=== PATIENT | male | born 1980 | race Two or more races ===

== ENCOUNTER 2023-11-28 23:43 | Inpatient (IN) | payer MEDICAID, OTHER ==
[~2023-11-28] VITALS: Ht 182.9 cm; Wt 156.9 kg
[2023-11-28 23:43] VITALS: PULSE 95; RESP 31; O2SAT 90
[2023-11-28] MEDS ORDERED: DEXTROSE 50% WATER 50ML SYRINGE IV ONE (23:56)
[2023-11-29] VITALS (66 sets, daily range): BP systolic 95–162; BP diastolic 60–111; PULSE 90–107; RESP 20–38; TEMP 37.33632–38.28084; O2SAT 90–100
[2023-11-29] MEDS: MAGNESIUM 2 G PREMIX 50 ML IV ONE
[2023-11-29] MEDS: DEXTROSE 50% WATER 50ML SYRINGE IV ONE
[2023-11-29] MEDS ORDERED: MIDAZOLAM 100MG/100ML PMX 100 ML IV PRN
[2023-11-29] MEDS ORDERED: FENTANYL 2500MCG/250ML PMX 250 ML IV PRN
[2023-11-29] MEDS ORDERED: ACETAMINOPHEN 650MG SUPP PR PRN
[2023-11-29] MEDS: SODIUM CHLORIDE 0.9% 1,000 ML IV ONE ×2 (00:07→01:15)
[2023-11-29 00:16] LABS: HEMATOCRIT. 38.6 % (42.0-52.0); MEAN CORPUSCULAR HEMOGLOBIN 19.4 pg (28.0-32.0); MEAN CORPUSCULAR HGB CONC 25.8 g/dL (31.0-37.0); MEAN CORPUSCULAR VOLUME 74.9 fL (80.0-94.0); MEAN PLATELET VOLUME 8.6 fl (7.4-10.4); PLATELET 303 x1000/uL (130-400); RED BLOOD CELL COUNT 5.15 mill/uL (4.7-6.1); RED CELL DISTRIBUTION WIDTH 23.1 % (11.6-14.6); WHITE BLOOD COUNT 9.9 x1000/uL (4.5-11.0)
[2023-11-29 00:20] LABS: CHLORIDE 97 mEq/L (98-107); POTASSIUM 3.8 mEq/L (3.5-5.1); SODIUM 145 mEq/L (136-145)
[2023-11-29 00:21] LABS: CALCIUM 8.3 mg/dL (8.7-10.4); CARBON DIOXIDE 32 mEq/L (21-32)
[2023-11-29 00:22] LABS: DIFFERENTIAL COMMENT 1
[2023-11-29 00:25] LABS: CREATININE 2.9 mg/dL (0.6-1.3)
[2023-11-29 00:26] LABS: UREA NITROGEN BLOOD 20 mg/dL (9-23)
[2023-11-29 00:28] LABS: D-DIMER 1.82 mg/L FEU (<0.50); INR 1.2; PROTHROMBIN TIME 13.4 sec (9.6-11.0)
[2023-11-29 00:34] LABS: GLUCOSE 38 mg/dL (70-105); LACTIC ACID 11.5 mmol/L (0.4-2.0); TROPONIN I HIGH SENSITIVITY 477 ng/L (3.0-53)
[2023-11-29 00:35] LABS: ETHANOL BLOOD < 10 mg/dL (<10)
[2023-11-29 00:49] LABS: PLATELET ESTIMATE NORMAL
[2023-11-29 00:51] LABS: HYPOCHROMASIA 1+; MICROCYTOSIS 1+
[2023-11-29] MEDS: FENTANYL 2500MCG/250ML PMX 250 ML IV PRN (01:13)
[2023-11-29 01:59] LABS: BG BASE EXCESS -1.3 mmol/L (-2.0-2.0); BG CARBOXYHEMOGLOBIN 1.2 % (0.5-1.5); BG DEOXYHEMOGLOBIN 13.1 % (0.0-5.0); BG FRACTION INSPIRED OXYGEN 100; BG HCO3 ACT 26.6 mmol/L (22.0-26.0); BG METHEMOGLOBIN 0.3 % (0.0-1.5); BG OXYGEN SATURATION 86.7 % (92.0-98.5); BG OXYHEMOGLOBIN 85.4 % (94.0-97.0); BG PCO2 61.1 mmHg (35.0-45.0); BG PH 7.256 (7.350-7.450); BG PO2 60.6 mmHg (75.0-100.0); BG SAMPLE SITE RIGHT RADIAL; BG TOTAL HEMOGLOBIN 10.3 g/dL (12.0-18.0); BG VENT MODE VENT - AC
[2023-11-29] MEDS: DEXTROSE 5% WATER 1,000 ML IV ONE (02:03)
[2023-11-29] MEDS: MIDAZOLAM 100MG/100ML PMX 100 ML IV PRN (02:31)
[2023-11-29] MEDS: METHYLPREDNISOLONE SOD SUCC 125MG/2ML (ACT-O-VIAL) IV STA (02:36)
[2023-11-29] MEDS: ALBUTEROL (0.083%) 2.5MG/3ML NEB ONE (04:43)
[2023-11-29] MEDS: IPRATROPIUM BROMIDE (0.02%) 0.5MG/2.5ML NEB ONE (04:43)
[2023-11-29] MEDS: IPRATROPIUM BROMIDE (0.02%) 0.5MG/2.5ML NEB HHN STA (04:45)
[2023-11-29 04:46] LABS: TROPONIN I HIGH SENSITIVITY 1343 ng/L (3.0-53)
[2023-11-29] MEDS: ALBUTEROL (0.083%) 2.5MG/3ML NEB HHN SCH (04:46)
[2023-11-29 05:20] LABS: TROPONIN I HIGH SENSITIVITY 1906 ng/L (3.0-53)
[2023-11-29] MEDS: METHYLPREDNISOLONE SOD SUCC 125MG/2ML (ACT-O-VIAL) IV NR (09:15)
[2023-11-29] MEDS ORDERED: PANTOPRAZOLE 80 MG in SODIUM CHLORIDE 0.9% 100 ML IV ONE (10:00)
[2023-11-29] MEDS ORDERED: AZITHROMYCIN 500MG/250ML 250 ML IV SCH (10:00)
[2023-11-29] MEDS ORDERED: CEFTRIAXONE 1GM/50ML 50 ML IV SCH (10:00)
[2023-11-29] MEDS: ACETAMINOPHEN 650MG/20.3ML UDC NG PRN (11:55)
[2023-11-29] MEDS: FUROSEMIDE 40MG/4ML VIAL IVP NR (11:56)
[2023-11-29] MEDS: METHYLPREDNISOLONE SOD SUCC 125MG/2ML (ACT-O-VIAL) IV SCH (11:56)
[2023-11-29] MEDS: BUDESONIDE 0.5MG/2ML NEB HHN SCH (12:21)
[2023-11-29] MEDS: IPRATROPIUM/ALBUTEROL 0.5-3(2.5)MG/3ML NEB HHN SCH (12:21)
[2023-11-29] MEDS ORDERED: DEXTROSE 50% WATER 50ML SYRINGE IV PRN (12:45)
[2023-11-29 13:12] LABS: CLARITY URINE TURBID (CLEAR); COLOR URINE DARK YELLOW (YELLOW); GLUCOSE URINE NEGATIVE (NEGATIVE); KETONES URINE TRACE (NEGATIVE); LEUKOCYTE ESTERASE URINE 1+ (NEGATIVE); NITRITE URINE NEGATIVE (NEGATIVE); OCCULT BLOOD URINE 3+ (NEGATIVE); PROTEIN URINE 3+ (NEGATIVE); SPECIFIC GRAVITY URINE 1.026 (1.005-1.030)
[2023-11-29 13:21] LABS: *AMPHETAMINES SCREEN URINE PRESUMPTIVE POSITIVE (NEGATIVE)
[2023-11-29 13:23] LABS: *BARBITURATES SCREEN URINE NEGATIVE (NEGATIVE); *BENZODIAZEPINES SCREEN URINE PRESUMPTIVE POSITIVE (NEGATIVE); *COCAINE SCREEN URINE NEGATIVE (NEGATIVE); CANNABINOID URINE SCREEN NEGATIVE (NEGATIVE); ECSTASY MDMA SCREEN URINE NEGATIVE (NEGATIVE); METHADONE URINE SCREEN NEGATIVE (NEGATIVE); OPIATES URINE SCREEN NEGATIVE (NEGATIVE); PHENCYCLIDINE URINE SCREEN PRESUMTIVE POSITIVE (NEGATIVE)
[2023-11-29] MEDS ORDERED: FENTANYL CITRATE/PF 2,500 MCG in SODIUM CHLORIDE 0.9% 200 ML IV PRN (14:00)
[2023-11-29] MEDS ORDERED: PROPOFOL 10MG/ML 100ML 100 ML IV PRN (14:00)
[2023-11-29] MEDS: PANTOPRAZOLE 80 MG in SODIUM CHLORIDE 0.9% 100 ML IV ONE (14:02)
[2023-11-29] MEDS: CEFTRIAXONE 1GM/50ML 50 ML IV SCH (14:05)
[2023-11-29] MEDS: ENOXAPARIN 150MG/ML SYR SUBCUT NR (14:05)
[2023-11-29] MEDS: AZITHROMYCIN 500MG/250ML 250 ML IV SCH (14:11)
[2023-11-29] MEDS ORDERED: FENTANYL CITRATE 2,500 MCG in SODIUM CHLORIDE 0.9% 200 ML IV PRN (14:15)
[2023-11-29 14:41] LABS: BACTERIA URINE 4+
[2023-11-29 14:43] LABS: TRICHOMONAS URINE 1+
[2023-11-29 15:48] LABS: BG BASE EXCESS 7.3 mmol/L (-2.0-2.0); BG CARBOXYHEMOGLOBIN 1.1 % (0.5-1.5); BG DEOXYHEMOGLOBIN 23.3 % (0.0-5.0); BG FRACTION INSPIRED OXYGEN 100; BG HCO3 ACT 33.2 mmol/L (22.0-26.0); BG METHEMOGLOBIN 0.3 % (0.0-1.5); BG OXYGEN SATURATION 76.4 % (92.0-98.5); BG OXYHEMOGLOBIN 75.3 % (94.0-97.0); BG PCO2 53.3 mmHg (35.0-45.0); BG PH 7.412 (7.350-7.450); BG PO2 48.2 mmHg (75.0-100.0); BG SAMPLE SITE RIGHT RADIAL; BG TOTAL HEMOGLOBIN 11.4 g/dL (12.0-18.0); BG VENT MODE VENT - AC
[2023-11-29 15:51] LABS: CHLORIDE 100 mEq/L (98-107); SODIUM 141 mEq/L (136-145)
[2023-11-29 15:52] LABS: CARBON DIOXIDE 34 mEq/L (21-32)
[2023-11-29 15:57] LABS: CREATININE 2.7 mg/dL (0.6-1.3); GLUCOSE 153 mg/dL (70-105); UREA NITROGEN BLOOD 33 mg/dL (9-23)
[2023-11-29 16:00] LABS: PHOSPHORUS 4.4 mg/dL (2.5-4.9)
[2023-11-29 16:16] LABS: TROPONIN I HIGH SENSITIVITY 5161 ng/L (3.0-53)
[2023-11-29] MEDS: BLOOD SUGAR DIAGNOSTIC STRIP TEST SCH (16:30)
[2023-11-29] MEDS: INSULIN LISPRO 100 UNITS/ML SUBCUT SCH (17:00)
[2023-11-29 18:13] LABS: HEMATOCRIT. 34.8 % (42.0-52.0); HEMOGLOBIN. 9.7 g/dL (14.0-18.0); MEAN CORPUSCULAR HEMOGLOBIN 19.1 pg (28.0-32.0); MEAN CORPUSCULAR HGB CONC 27.9 g/dL (31.0-37.0); MEAN CORPUSCULAR VOLUME 68.2 fL (80.0-94.0); MEAN PLATELET VOLUME 9.1 fl (7.4-10.4); PLATELET 236 x1000/uL (130-400); RED CELL DISTRIBUTION WIDTH 22.7 % (11.6-14.6); WHITE BLOOD COUNT 13.5 x1000/uL (4.5-11.0)
[2023-11-29 18:18] LABS: DIFFERENTIAL COMMENT 1
[2023-11-29 18:21] LABS: ALBUMIN 3.5 g/dL (3.2-4.8); BILIRUBIN DIRECT 0.4 mg/dL (<=3.0); BILIRUBIN TOTAL 0.9 mg/dL (0.1-1.0); PROTEIN TOTAL 6.5 g/dL (6.0-8.3)
[2023-11-29 18:27] LABS: AMMONIA < 17 uMol/L (<32)
[2023-11-29 18:31] LABS: ALANINE AMINOTRANSFERASE 2058 IU/L (10-49)
[2023-11-29 18:35] LABS: ASPARTATE AMINOTRANSFERASE 2763 IU/L (<34)
[2023-11-29 19:39] LABS: HYPOCHROMASIA 2+; MICROCYTOSIS 3+; NUCLEATED RED BLOOD CELLS 2 /100 WBC; PLATELET ESTIMATE NORMAL
[2023-11-29] MEDS: DEXAMETHASONE 4MG/ML 1ML VIAL IV SCH (19:52)
[2023-11-29] MEDS: PANTOPRAZOLE SODIUM 40 MG/VIAL IV SCH (21:18)
[2023-11-29] MEDS: ENOXAPARIN 150MG/ML SYR SUBCUT SCH (21:19)
[2023-11-29] MEDS: METOPROLOL TARTRATE 25MG TABLET PO SCH (21:20)
[2023-11-29] MEDS: PIPERACILLIN/TAZO 3.375G/50ML 50 ML IV SCH (21:39)
[2023-11-30] VITALS (102 sets, daily range): BP systolic 89–144; BP diastolic 56–107; PULSE 82–97; RESP 19–36; TEMP 37.16964–38.0586; O2SAT 88–100
[2023-11-30] MEDS: ACETAMINOPHEN 650MG SUPP PR PRN (00:38)
[2023-11-30] MEDS: ACETAMINOPHEN 650MG/20.3ML UDC NG PRN (00:46)
[2023-11-30 06:12] LABS: TROPONIN I HIGH SENSITIVITY 2420 ng/L (3.0-53)
[2023-11-30] MEDS: FUROSEMIDE 40MG/4ML VIAL IV SCH (06:51)
[2023-11-30 08:53] LABS: CREATINE KINASE 395 IU/L (46-171)
[2023-11-30] MEDS ORDERED: ENOXAPARIN 150MG/ML SYR SUBCUT SCH (09:00)
[2023-11-30 09:14] LABS: HEPATITIS B SURFACE ANTIGEN NEGATIVE (Negative)
[2023-11-30 09:35] LABS: HEPATITIS A AB IGM NEGATIVE (Negative)
[2023-11-30 09:37] LABS: HEPATITIS B CORE AB IGM NEGATIVE (Negative); HEPATITIS C AB NON REACTIVE (Neg) (Negative)
[2023-11-30 09:54] LABS: HEMATOCRIT 32.9 % (42.0-52.0); HEMOGLOBIN 9.4 g/dL (14.0-18.0); MEAN CORPUSCULAR HEMOGLOBIN 19.3 pg (28.0-32.0); MEAN CORPUSCULAR HGB CONC 28.6 g/dL (31.0-37.0); MEAN CORPUSCULAR VOLUME 67.5 fL (80.0-94.0); PLATELET 232 x1000/uL (130-400); RED BLOOD CELL COUNT 4.87 mill/uL (4.7-6.1); RED CELL DISTRIBUTION WIDTH 22.9 % (11.6-14.6); WHITE BLOOD COUNT 14.1 x1000/uL (4.5-11.0)
[2023-11-30 10:03] LABS: CHLORIDE 99 mEq/L (98-107); POTASSIUM 3.7 mEq/L (3.5-5.1); SODIUM 140 mEq/L (136-145)
[2023-11-30 10:04] LABS: CALCIUM 7.7 mg/dL (8.7-10.4); CARBON DIOXIDE 36 mEq/L (21-32)
[2023-11-30] MEDS: ASPIRIN 81MG TABLET PO SCH (10:07)
[2023-11-30 10:09] LABS: CREATININE 2.6 mg/dL (0.6-1.3); GLUCOSE 148 mg/dL (70-105); UREA NITROGEN BLOOD 42 mg/dL (9-23)
[2023-11-30] MEDS: PANTOPRAZOLE SODIUM 40 MG/VIAL IV SCH (10:09)
[2023-11-30] MEDS: ENOXAPARIN 80MG/0.8ML SYR SUBCUT SCH (10:27)
[2023-11-30] MEDS: METRONIDAZOLE 500MG TABLET PO SCH (12:07)
[2023-11-30] MEDS: DOXYCYCLINE 100MG/100ML 100 ML IV SCH (12:08)
[2023-11-30 19:23] LABS: CREATININE URINE RANDOM 191.3 mg/dL
[2023-11-30] MEDS: MIDAZOLAM 100MG/100ML PMX 100 ML IV PRN (22:40)
[2023-12-01] VITALS (108 sets, daily range): BP systolic 76–121; BP diastolic 36–97; PULSE 84–95; RESP 15–44; TEMP 37.72524–38.6142; O2SAT 87–100
[2023-12-01 05:50] LABS: HEMATOCRIT. 36.6 % (42.0-52.0); MEAN CORPUSCULAR HEMOGLOBIN 19.1 pg (28.0-32.0); MEAN CORPUSCULAR HGB CONC 27.3 g/dL (31.0-37.0); MEAN CORPUSCULAR VOLUME 69.9 fL (80.0-94.0); MEAN PLATELET VOLUME 9.5 fl (7.4-10.4); PLATELET 293 x1000/uL (130-400); RED BLOOD CELL COUNT 5.24 mill/uL (4.7-6.1); WHITE BLOOD COUNT 15.2 x1000/uL (4.5-11.0)
[2023-12-01 05:56] LABS: CALCIUM 8.6 mg/dL (8.7-10.4); CHLORIDE 97 mEq/L (98-107); POTASSIUM 4.4 mEq/L (3.5-5.1); SODIUM 142 mEq/L (136-145)
[2023-12-01 05:57] LABS: CARBON DIOXIDE 32 mEq/L (21-32)
[2023-12-01 06:02] LABS: CREATININE 3.1 mg/dL (0.6-1.3); GLUCOSE 121 mg/dL (70-105); UREA NITROGEN BLOOD 53 mg/dL (9-23)
[2023-12-01 06:04] LABS: PHOSPHORUS 6.8 mg/dL (2.5-4.9)
[2023-12-01 06:37] LABS: DIFFERENTIAL COMMENT 1
[2023-12-01] MEDS: SODIUM CHLORIDE 0.9% 500 ML IV ONE (10:02)
[2023-12-01 11:19] LABS: CHLORIDE 98 mEq/L (98-107); POTASSIUM 4.4 mEq/L (3.5-5.1); SODIUM 141 mEq/L (136-145)
[2023-12-01 11:20] LABS: CALCIUM 8.1 mg/dL (8.7-10.4); CARBON DIOXIDE 32 mEq/L (21-32)
[2023-12-01 11:25] LABS: CREATININE 3.7 mg/dL (0.6-1.3); GLUCOSE 104 mg/dL (70-105); UREA NITROGEN BLOOD 59 mg/dL (9-23)
[2023-12-01 11:27] LABS: PHOSPHORUS 6.9 mg/dL (2.5-4.9)
[2023-12-01] MEDS: LANTHANUM CARBONATE 500MG CHEW TABLET PO SCH (12:14)
[2023-12-01 13:28] LABS: NUCLEATED RED BLOOD CELLS 3 /100 WBC
[2023-12-01 13:29] LABS: ANISOCYTOSIS 3+; HYPOCHROMASIA 2+; MICROCYTOSIS 3+; PLATELET ESTIMATE NORMAL; TARGET CELLS 1+
[2023-12-01] MEDS: SODIUM CHLORIDE 0.9% 100 ML IV ONE (18:03)
[2023-12-02] VITALS (110 sets, daily range): BP systolic 63–135; BP diastolic 28–99; PULSE 85–96; RESP 13–24; TEMP 37.33632–39.05868; O2SAT 87–100
[2023-12-02] MEDS: PHENYLEPHRINE 100 MG in DEXT 5% WATER 240 ML IV PRN (03:27)
[2023-12-02 05:12] LABS: HEMATOCRIT. 34.5 % (42.0-52.0); HEMOGLOBIN. 9.7 g/dL (14.0-18.0); MEAN CORPUSCULAR HEMOGLOBIN 19.4 pg (28.0-32.0); MEAN CORPUSCULAR HGB CONC 28.1 g/dL (31.0-37.0); MEAN CORPUSCULAR VOLUME 69.1 fL (80.0-94.0); MEAN PLATELET VOLUME 9.4 fl (7.4-10.4); PLATELET 280 x1000/uL (130-400); RED BLOOD CELL COUNT 4.98 mill/uL (4.7-6.1)
[2023-12-02 05:21] LABS: CHLORIDE 98 mEq/L (98-107); POTASSIUM 4.4 mEq/L (3.5-5.1); SODIUM 139 mEq/L (136-145)
[2023-12-02 05:22] LABS: CARBON DIOXIDE 33 mEq/L (21-32)
[2023-12-02 05:27] LABS: CREATININE 4.6 mg/dL (0.6-1.3); GLUCOSE 129 mg/dL (70-105); UREA NITROGEN BLOOD 75 mg/dL (9-23)
[2023-12-02 05:29] LABS: PHOSPHORUS 7.5 mg/dL (2.5-4.9)
[2023-12-02 05:56] LABS: TROPONIN I HIGH SENSITIVITY 1147 ng/L (3.0-53)
[2023-12-02 06:30] LABS: DIFFERENTIAL COMMENT 1
[2023-12-02 09:07] LABS: COMPLEMENT C3 97 mg/dL (82-167); COMPLEMENT C4 25 mg/dL (12-38)
[2023-12-02 10:15] LABS: BG BASE EXCESS 5.5 mmol/L (-2.0-2.0); BG CARBOXYHEMOGLOBIN 0.7 % (0.5-1.5); BG DEOXYHEMOGLOBIN 4.1 % (0.0-5.0); BG FRACTION INSPIRED OXYGEN 80; BG HCO3 ACT 31.6 mmol/L (22.0-26.0); BG METHEMOGLOBIN 0.1 % (0.0-1.5); BG OXYGEN SATURATION 95.9 % (92.0-98.5); BG OXYHEMOGLOBIN 95.1 % (94.0-97.0); BG PCO2 53.6 mmHg (35.0-45.0); BG PH 7.388 (7.350-7.450); BG PO2 91.9 mmHg (75.0-100.0); BG SAMPLE SITE LEFT RADIAL; BG TOTAL HEMOGLOBIN 10.8 g/dL (12.0-18.0); BG VENT MODE VENT - P/C
[2023-12-02 13:07] LABS: ANTI-NUCLEAR ANTIBODIES DIRECT Negative (Negative)
[2023-12-02 15:33] LABS: ANISOCYTOSIS 3+; MICROCYTOSIS 3+; NUCLEATED RED BLOOD CELLS 7 /100 WBC; PLATELET ESTIMATE NORMAL
[2023-12-02 15:34] LABS: HYPOCHROMASIA 1+
[2023-12-02] MEDS: DEXMEDETOMIDINE 400 MCG/100 ML 100 ML IV PRN (19:35)
[2023-12-02] MEDS: PIPERACILLIN/TAZO 3.375G/50ML 50 ML IV SCH (20:47)
[2023-12-03] VITALS (118 sets, daily range): BP systolic 82–155; BP diastolic 56–132; PULSE 67–97; RESP 0–29; TEMP 36.61404–38.6142; O2SAT 93–100
[2023-12-03 10:10] LABS: HEMOGLOBIN 9.9 g/dL (14.0-18.0); MEAN CORPUSCULAR HEMOGLOBIN 19.1 pg (28.0-32.0); MEAN CORPUSCULAR HGB CONC 27.4 g/dL (31.0-37.0); MEAN CORPUSCULAR VOLUME 69.5 fL (80.0-94.0); PLATELET 251 x1000/uL (130-400); RED BLOOD CELL COUNT 5.17 mill/uL (4.7-6.1); RED CELL DISTRIBUTION WIDTH 23.5 % (11.6-14.6); WHITE BLOOD COUNT 12.5 x1000/uL (4.5-11.0)
[2023-12-03 10:22] LABS: CHLORIDE 105 mEq/L (98-107); POTASSIUM 3.6 mEq/L (3.5-5.1); SODIUM 142 mEq/L (136-145)
[2023-12-03 10:23] LABS: CALCIUM 8.5 mg/dL (8.7-10.4); CARBON DIOXIDE 30 mEq/L (21-32)
[2023-12-03 10:28] LABS: GLUCOSE 139 mg/dL (70-105); UREA NITROGEN BLOOD 59 mg/dL (9-23)
[2023-12-03 10:30] LABS: PHOSPHORUS 4.7 mg/dL (2.5-4.9)
[2023-12-03 10:56] LABS: CREATININE 2.9 mg/dL (0.6-1.3)
[2023-12-04] VITALS (82 sets, daily range): BP systolic 108–158; BP diastolic 60–100; PULSE 78–102; RESP 14–26; TEMP 37.16964–38.3364; O2SAT 90–100
[2023-12-04 10:41] LABS: BASOPHILS % 0.1 % (0.0-2.0); EOSINOPHILS % 1.2 % (0.0-5.0); HEMATOCRIT. 30.7 % (42.0-52.0); HEMOGLOBIN. 8.7 g/dL (14.0-18.0); LYMPHOCYTES % 10.5 % (20.0-50.0); MEAN CORPUSCULAR HEMOGLOBIN 19.3 pg (28.0-32.0); MEAN CORPUSCULAR HGB CONC 28.3 g/dL (31.0-37.0); MEAN CORPUSCULAR VOLUME 68.3 fL (80.0-94.0); MEAN PLATELET VOLUME 9.4 fl (7.4-10.4); MONOCYTES % 14.8 % (2.0-8.0); NEUTROPHILS % 73.4 % (40.0-76.0); PLATELET 195 x1000/uL (130-400); RED CELL DISTRIBUTION WIDTH 22.8 % (11.6-14.6); WHITE BLOOD COUNT 10.1 x1000/uL (4.5-11.0)
[2023-12-04 10:48] LABS: CARBON DIOXIDE 34 mEq/L (21-32); CHLORIDE 106 mEq/L (98-107); DIFFERENTIAL COMMENT 1; POTASSIUM 3.3 mEq/L (3.5-5.1); SODIUM 148 mEq/L (136-145)
[2023-12-04 10:49] LABS: CALCIUM 8.5 mg/dL (8.7-10.4)
[2023-12-04 10:54] LABS: CREATININE 2.2 mg/dL (0.6-1.3); GLUCOSE 109 mg/dL (70-105); UREA NITROGEN BLOOD 60 mg/dL (9-23)
[2023-12-04 10:56] LABS: PHOSPHORUS 2.2 mg/dL (2.5-4.9)
[2023-12-04] MEDS: KCL 20MEQ/100ML PREMIX 100 ML IV NR (11:05)
[2023-12-04] MEDS: FUROSEMIDE 100MG/10ML VIAL IVP SCH (14:19)
[2023-12-05] VITALS (78 sets, daily range): BP systolic 115–182; BP diastolic 67–102; PULSE 80–101; RESP 11–33; TEMP 36.9474–38.44752; O2SAT 82–100
[2023-12-05 04:45] LABS: HEMATOCRIT. 29.2 % (42.0-52.0); HEMOGLOBIN. 8.4 g/dL (14.0-18.0); MEAN CORPUSCULAR HEMOGLOBIN 19.6 pg (28.0-32.0); MEAN CORPUSCULAR HGB CONC 28.7 g/dL (31.0-37.0); MEAN CORPUSCULAR VOLUME 68.2 fL (80.0-94.0); MEAN PLATELET VOLUME 9.1 fl (7.4-10.4); PLATELET 223 x1000/uL (130-400); RED BLOOD CELL COUNT 4.28 mill/uL (4.7-6.1); RED CELL DISTRIBUTION WIDTH 23.3 % (11.6-14.6); WHITE BLOOD COUNT 10.1 x1000/uL (4.5-11.0)
[2023-12-05 05:00] LABS: IRON 25 ug/dL (65-175)
[2023-12-05 05:01] LABS: ALANINE AMINOTRANSFERASE 639 IU/L (10-49)
[2023-12-05 05:02] LABS: ALBUMIN 3.3 g/dL (3.2-4.8); ASPARTATE AMINOTRANSFERASE 186 IU/L (<34); BILIRUBIN DIRECT 0.7 mg/dL (<=3.0); BILIRUBIN TOTAL 1.4 mg/dL (0.1-1.0); PROTEIN TOTAL 6.3 g/dL (6.0-8.3); TOTAL IRON BINDING CAPACITY 425 ug/dl (250-425)
[2023-12-05 05:09] LABS: VITAMIN B12 SERUM 831 pg/mL (211-911)
[2023-12-05 05:10] LABS: FOLIC ACID (FOLATE) SERUM 5.74 ng/mL (>5.38)
[2023-12-05 05:11] LABS: FERRITIN 73 ng/mL (22-322)
[2023-12-05 05:14] LABS: DIFFERENTIAL COMMENT 1
[2023-12-05] MEDS ORDERED: LIDOCAINE HCL/EPINEPHRINE 1%-EPI 1:100,000 20 ML VIAL ONE (07:22)
[2023-12-05] MEDS ORDERED: ROCURONIUM BROMIDE 10MG/ML VIAL 5ML IV ONE ×2 (09:12→09:55)
[2023-12-05] MEDS ORDERED: PROPOFOL 200MG/20ML VIAL IV ONE (09:15)
[2023-12-05 09:22] LABS: CHLORIDE 108 mEq/L (98-107); SODIUM 149 mEq/L (136-145)
[2023-12-05 09:23] LABS: CALCIUM 8.9 mg/dL (8.7-10.4); CARBON DIOXIDE 34 mEq/L (21-32)
[2023-12-05 09:25] LABS: POTASSIUM 2.8 mEq/L (3.5-5.1)
[2023-12-05 09:28] LABS: CREATININE 1.7 mg/dL (0.6-1.3); GLUCOSE 111 mg/dL (70-105); UREA NITROGEN BLOOD 47 mg/dL (9-23)
[2023-12-05 09:30] LABS: PHOSPHORUS 1.5 mg/dL (2.5-4.9)
[2023-12-05] MEDS ORDERED: FENTANYL CITRATE/PF 50MCG/ML 2ML VIAL ONE (09:35)
[2023-12-05] MEDS ORDERED: EPHEDRINE SULFATE 50MG/ML VIAL ONE (09:55)
[2023-12-05] MEDS: KCL 20MEQ/100ML PREMIX 100 ML IV SCH (11:10)
[2023-12-05 11:17] LABS: NUCLEATED RED BLOOD CELLS 2 /100 WBC
[2023-12-05 11:20] LABS: ANISOCYTOSIS 3+; HYPOCHROMASIA 1+; MICROCYTOSIS 3+; PLATELET ESTIMATE NORMAL; TARGET CELLS 1+
[2023-12-05] MEDS: HYDRALAZINE 20MG/ML VIAL IV PRN (15:45)
[2023-12-05] MEDS: POTASSIUM PHOSPHATE 30 MMOL in SODIUM CHLORIDE 0.9% 490 ML IV ONE (15:45)
[2023-12-05] MEDS: IRON SUCROSE COMPLEX 100 MG/5 ML ML IV SCH (15:46)
[2023-12-05 17:19] LABS: POTASSIUM 3.1 mEq/L (3.5-5.1)
[2023-12-05] MEDS: POTASSIUM CHLORIDE 20MEQ/PACKET PO NR (20:07)
[2023-12-06] VITALS (62 sets, daily range): BP systolic 123–194; BP diastolic 45–120; PULSE 90–109; RESP 16–27; TEMP 37.2252–37.503; O2SAT 91–100
[2023-12-06] MEDS: LORAZEPAM 2MG/ML INJ IV PRN (01:33)
[2023-12-06 05:35] LABS: INR 1.2
[2023-12-06 05:40] LABS: BASOPHILS % 0.6 % (0.0-2.0); EOSINOPHILS % 0.9 % (0.0-5.0); HEMATOCRIT. 28.4 % (42.0-52.0); HEMOGLOBIN. 8.1 g/dL (14.0-18.0); LYMPHOCYTES % 14.8 % (20.0-50.0); MEAN CORPUSCULAR HEMOGLOBIN 19.6 pg (28.0-32.0); MEAN CORPUSCULAR HGB CONC 28.6 g/dL (31.0-37.0); MEAN CORPUSCULAR VOLUME 68.6 fL (80.0-94.0); MEAN PLATELET VOLUME 9.2 fl (7.4-10.4); MONOCYTES % 15.9 % (2.0-8.0); NEUTROPHILS % 67.8 % (40.0-76.0); PLATELET 251 x1000/uL (130-400); RED BLOOD CELL COUNT 4.14 mill/uL (4.7-6.1); RED CELL DISTRIBUTION WIDTH 23.8 % (11.6-14.6)
[2023-12-06 05:47] LABS: CHLORIDE 113 mEq/L (98-107); POTASSIUM 3.5 mEq/L (3.5-5.1); SODIUM 154 mEq/L (136-145)
[2023-12-06 05:48] LABS: CALCIUM 8.7 mg/dL (8.7-10.4); CARBON DIOXIDE 31 mEq/L (21-32)
[2023-12-06 05:53] LABS: CREATININE 1.6 mg/dL (0.6-1.3); GLUCOSE 97 mg/dL (70-105); UREA NITROGEN BLOOD 34 mg/dL (9-23)
[2023-12-06 05:55] LABS: PHOSPHORUS 3.6 mg/dL (2.5-4.9)
[2023-12-06 07:07] LABS: DIFFERENTIAL COMMENT 1
[2023-12-06] MEDS: KCL 20MEQ/100ML PREMIX 100 ML IV SCH (08:40)
[2023-12-06] MEDS: CEFTRIAXONE 1GM/50ML 50 ML IV NR (08:40)
[2023-12-06] MEDS: DEXTROSE 5% WATER 1,000 ML IV SCH (08:40)
[2023-12-06] MEDS ORDERED: CARVEDILOL 3.125 MG TABLET NG SCH (09:00)
[2023-12-06 09:52] LABS: CHLORIDE 112 mEq/L (98-107); POTASSIUM 3.1 mEq/L (3.5-5.1); SODIUM 152 mEq/L (136-145)
[2023-12-06 09:53] LABS: CALCIUM 8.7 mg/dL (8.7-10.4); CARBON DIOXIDE 32 mEq/L (21-32)
[2023-12-06 09:57] LABS: CREATININE 1.7 mg/dL (0.6-1.3); GLUCOSE 103 mg/dL (70-105)
[2023-12-06 09:58] LABS: UREA NITROGEN BLOOD 32 mg/dL (9-23)
[2023-12-06 10:00] LABS: PHOSPHORUS 3.4 mg/dL (2.5-4.9)
[2023-12-06] MEDS ORDERED: PROPOFOL 200MG/20ML VIAL IV ONE (11:25)
[2023-12-06] MEDS ORDERED: ROCURONIUM BROMIDE 10MG/ML VIAL 5ML IV ONE (11:25)
[2023-12-06] MEDS: CARVEDILOL 6.25 MG TABLET NG SCH (20:38)
[2023-12-06] MEDS: POTASSIUM-SODIUM PHOSPHATE POWDER PACKET PO SCH (20:38)
[2023-12-07] VITALS (25 sets, daily range): BP systolic 98–191; BP diastolic 69–168; PULSE 92–110; RESP 16–26; TEMP 36.50292–37.503; O2SAT 85–100
[2023-12-07 07:02] LABS: CARBON DIOXIDE 27 mEq/L (21-32); CHLORIDE 113 mEq/L (98-107); POTASSIUM 3.6 mEq/L (3.5-5.1); SODIUM 151 mEq/L (136-145)
[2023-12-07 07:04] LABS: CALCIUM 8.9 mg/dL (8.7-10.4)
[2023-12-07 07:08] LABS: CREATININE 1.5 mg/dL (0.6-1.3); GLUCOSE 99 mg/dL (70-105); UREA NITROGEN BLOOD 22 mg/dL (9-23)
[2023-12-07 07:11] LABS: PHOSPHORUS 4.4 mg/dL (2.5-4.9)
[2023-12-07 09:15] LABS: BASOPHILS % 0.4 % (0.0-2.0); EOSINOPHILS % 3.9 % (0.0-5.0); HEMATOCRIT. 30.7 % (42.0-52.0); HEMOGLOBIN. 8.6 g/dL (14.0-18.0); LYMPHOCYTES % 15.1 % (20.0-50.0); MEAN CORPUSCULAR HEMOGLOBIN 19.5 pg (28.0-32.0); MEAN CORPUSCULAR VOLUME 69.5 fL (80.0-94.0); MONOCYTES % 12.6 % (2.0-8.0); PLATELET 282 x1000/uL (130-400); RED BLOOD CELL COUNT 4.41 mill/uL (4.7-6.1); RED CELL DISTRIBUTION WIDTH 23.9 % (11.6-14.6)
[2023-12-07 09:22] LABS: DIFFERENTIAL COMMENT 1
[2023-12-07 09:23] LABS: WHITE BLOOD COUNT 10.2 x1000/uL (4.5-11.0)
[2023-12-07 09:24] LABS: ADD RBC MORPHOLOGY NO
[2023-12-07 09:54] LABS: CHLORIDE 113 mEq/L (98-107); SODIUM 150 mEq/L (136-145)
[2023-12-07 09:55] LABS: CARBON DIOXIDE 29 mEq/L (21-32)
[2023-12-07 09:56] LABS: CALCIUM 8.9 mg/dL (8.7-10.4)
[2023-12-07 10:00] LABS: CREATININE 1.6 mg/dL (0.6-1.3); GLUCOSE 116 mg/dL (70-105)
[2023-12-07 10:01] LABS: UREA NITROGEN BLOOD 24 mg/dL (9-23)
[2023-12-07 10:03] LABS: PHOSPHORUS 4.5 mg/dL (2.5-4.9)
[2023-12-07] MEDS ORDERED: SODIUM CHLORIDE 3% FOR INH 4ML NEB INH PRN (14:15)
[2023-12-07] MEDS: ACETYLCYSTEINE 200MG/ML 20% VIAL 4ML INH SCH (17:21)
[2023-12-07] MEDS: CARVEDILOL 12.5MG TABLET GT SCH (20:24)
[2023-12-08] VITALS (20 sets, daily range): BP systolic 118–141; BP diastolic 80–109; PULSE 82–99; RESP 17–23; TEMP 36.16956–37.503; O2SAT 96–100
[2023-12-08 05:03] LABS: BASOPHILS % 0.4 % (0.0-2.0); EOSINOPHILS % 5.1 % (0.0-5.0); HEMATOCRIT. 29.8 % (42.0-52.0); HEMOGLOBIN. 8.1 g/dL (14.0-18.0); LYMPHOCYTES % 13.2 % (20.0-50.0); MEAN CORPUSCULAR HEMOGLOBIN 19.2 pg (28.0-32.0); MEAN CORPUSCULAR HGB CONC 27.1 g/dL (31.0-37.0); MEAN CORPUSCULAR VOLUME 70.7 fL (80.0-94.0); MEAN PLATELET VOLUME 9.3 fl (7.4-10.4); MONOCYTES % 9.8 % (2.0-8.0); NEUTROPHILS % 71.5 % (40.0-76.0); PLATELET 288 x1000/uL (130-400); RED BLOOD CELL COUNT 4.22 mill/uL (4.7-6.1); RED CELL DISTRIBUTION WIDTH 24.3 % (11.6-14.6); WHITE BLOOD COUNT 11.1 x1000/uL (4.5-11.0)
[2023-12-08 05:29] LABS: CALCIUM 8.3 mg/dL (8.7-10.4)
[2023-12-08 05:34] LABS: CREATININE 1.5 mg/dL (0.6-1.3)
[2023-12-08 08:02] LABS: DIFFERENTIAL COMMENT 1
[2023-12-08] MEDS: ENOXAPARIN 40MG/0.4ML SYR SUBCUT SCH (08:18)
[2023-12-08] MEDS: POTASSIUM CHLORIDE 20MEQ/PACKET PO SCH (11:22)
[2023-12-08] MEDS ORDERED: POTASSIUM CHLORIDE 20MEQ TABLET SR PO SCH ×2 (17:30→18:00)
[2023-12-08] MEDS: POTASSIUM CHLORIDE 20MEQ/PACKET GT SCH ×2 (17:50→18:00)
[2023-12-08] MEDS: FERROUS SULFATE 325MG TABLET PO SCH (17:50)
[2023-12-08] MEDS: QUETIAPINE FUMARATE 25MG TABLET PO SCH (21:17)
[2023-12-09] VITALS (21 sets, daily range): BP systolic 127–155; BP diastolic 78–113; PULSE 84–96; RESP 18–19; TEMP 36.22512–37.55856; O2SAT 10–100
[2023-12-09] MEDS ORDERED: FERROUS SULFATE 300MG/5ML UDC PO SCH (07:00)
[2023-12-09] MEDS: AMLODIPINE 5MG TABLET PO SCH (12:09)
[2023-12-09 17:42] LABS: BASOPHILS % 0.5 % (0.0-2.0); DIFFERENTIAL COMMENT 1; EOSINOPHILS % 3.1 % (0.0-5.0); HEMATOCRIT. 31.9 % (42.0-52.0); HEMOGLOBIN. 8.7 g/dL (14.0-18.0); LYMPHOCYTES % 12.1 % (20.0-50.0); MEAN CORPUSCULAR HEMOGLOBIN 19.7 pg (28.0-32.0); MEAN CORPUSCULAR HGB CONC 27.2 g/dL (31.0-37.0); MEAN CORPUSCULAR VOLUME 72.5 fL (80.0-94.0); MEAN PLATELET VOLUME 9.4 fl (7.4-10.4); MONOCYTES % 7.2 % (2.0-8.0); NEUTROPHILS % 77.1 % (40.0-76.0); PLATELET 269 x1000/uL (130-400); RED BLOOD CELL COUNT 4.41 mill/uL (4.7-6.1); RED CELL DISTRIBUTION WIDTH 25.1 % (11.6-14.6); WHITE BLOOD COUNT 12.3 x1000/uL (4.5-11.0)
[2023-12-09 17:51] LABS: CHLORIDE 113 mEq/L (98-107); POTASSIUM 3.7 mEq/L (3.5-5.1); SODIUM 145 mEq/L (136-145)
[2023-12-09 17:52] LABS: CARBON DIOXIDE 26 mEq/L (21-32)
[2023-12-09 17:53] LABS: CALCIUM 8.7 mg/dL (8.7-10.4)
[2023-12-09 17:57] LABS: CREATININE 1.2 mg/dL (0.6-1.3); GLUCOSE 124 mg/dL (70-105)
[2023-12-09 17:58] LABS: UREA NITROGEN BLOOD 16 mg/dL (9-23)
[2023-12-09 18:00] LABS: PHOSPHORUS 2.7 mg/dL (2.5-4.9)
[2023-12-09] MEDS: FERROUS SULFATE 300MG/5ML UDC GT SCH (19:05)
[2023-12-10] VITALS (28 sets, daily range): BP systolic 116–154; BP diastolic 60–115; PULSE 82–101; RESP 12–28; TEMP 36.44736–37.503; O2SAT 95–100
[2023-12-10 08:13] LABS: EOSINOPHILS % 3.7 % (0.0-5.0); HEMATOCRIT. 31.2 % (42.0-52.0); HEMOGLOBIN. 8.5 g/dL (14.0-18.0); LYMPHOCYTES % 13.7 % (20.0-50.0); MEAN CORPUSCULAR HGB CONC 27.4 g/dL (31.0-37.0); MEAN CORPUSCULAR VOLUME 73.2 fL (80.0-94.0); MEAN PLATELET VOLUME 9.4 fl (7.4-10.4); MONOCYTES % 6.3 % (2.0-8.0); NEUTROPHILS % 75.3 % (40.0-76.0); PLATELET 193 x1000/uL (130-400); RED BLOOD CELL COUNT 4.26 mill/uL (4.7-6.1); RED CELL DISTRIBUTION WIDTH 25.1 % (11.6-14.6)
[2023-12-10 08:17] LABS: DIFFERENTIAL COMMENT 1
[2023-12-10] MEDS: HALOPERIDOL 5MG TABLET PO PRN (08:17)
[2023-12-10 09:30] LABS: CHLORIDE 114 mEq/L (98-107); POTASSIUM 4.3 mEq/L (3.5-5.1); SODIUM 145 mEq/L (136-145)
[2023-12-10 09:31] LABS: CARBON DIOXIDE 24 mEq/L (21-32)
[2023-12-10 09:32] LABS: CALCIUM 8.1 mg/dL (8.7-10.4)
[2023-12-10 09:36] LABS: CREATININE 1.1 mg/dL (0.6-1.3); GLUCOSE 110 mg/dL (70-105); UREA NITROGEN BLOOD 15 mg/dL (9-23)
[2023-12-10] MEDS: QUETIAPINE FUMARATE 25MG TABLET PO SCH (14:16)
[2023-12-11] VITALS (25 sets, daily range): BP systolic 103–145; BP diastolic 65–93; PULSE 75–104; RESP 18–28; TEMP 36.72516–37.66968; O2SAT 96–100
[2023-12-11 07:19] LABS: CARBON DIOXIDE 25 mEq/L (21-32); CHLORIDE 111 mEq/L (98-107); POTASSIUM 3.6 mEq/L (3.5-5.1); SODIUM 144 mEq/L (136-145)
[2023-12-11 07:21] LABS: CALCIUM 8.6 mg/dL (8.7-10.4)
[2023-12-11 07:25] LABS: CREATININE 1.2 mg/dL (0.6-1.3); GLUCOSE 87 mg/dL (70-105)
[2023-12-11 07:26] LABS: BASOPHILS % 0.5 % (0.0-2.0); EOSINOPHILS % 3.5 % (0.0-5.0); HEMATOCRIT. 30.2 % (42.0-52.0); HEMOGLOBIN. 8.5 g/dL (14.0-18.0); LYMPHOCYTES % 13.7 % (20.0-50.0); MEAN CORPUSCULAR HEMOGLOBIN 20.1 pg (28.0-32.0); MEAN CORPUSCULAR HGB CONC 28.1 g/dL (31.0-37.0); MEAN CORPUSCULAR VOLUME 71.7 fL (80.0-94.0); MEAN PLATELET VOLUME 9.4 fl (7.4-10.4); MONOCYTES % 9.1 % (2.0-8.0); NEUTROPHILS % 73.2 % (40.0-76.0); PLATELET 266 x1000/uL (130-400); RED BLOOD CELL COUNT 4.21 mill/uL (4.7-6.1); RED CELL DISTRIBUTION WIDTH 24.9 % (11.6-14.6); UREA NITROGEN BLOOD 14 mg/dL (9-23)
[2023-12-11 07:33] LABS: DIFFERENTIAL COMMENT 1
[2023-12-11] MEDS: QUETIAPINE FUMARATE 25MG TABLET PO SCH (09:32)
[2023-12-11] MEDS: DIATR MEGLU/DIATRIZOATE SOLN 30ML ONE (21:04)
[2023-12-11] MEDS: LORAZEPAM 2MG/ML INJ IV PRN (22:23)
[2023-12-11] MEDS: INSULIN LISPRO 100 UNITS/ML SUBCUT SCH (23:23)
[2023-12-11] MEDS: BLOOD SUGAR DIAGNOSTIC STRIP TEST SCH (23:23)
[2023-12-12] VITALS (26 sets, daily range): BP systolic 134–152; BP diastolic 83–121; PULSE 72–102; RESP 16–26; TEMP 36.33624–37.503; O2SAT 96–100
[2023-12-12] MEDS: HALOPERIDOL LACTATE 5MG/ML VIAL IM NR (09:26)
[2023-12-12] MEDS: LIDOCAINE HCL 1% 10 MG/ML 10ML VIAL ONE ×2 (09:33)
[2023-12-12] MEDS: DIATR MEGLU/DIATRIZOATE SOLN 30ML ONE (17:24)
[2023-12-12] MEDS: HALOPERIDOL LACTATE 5MG/ML VIAL IM PRN (17:50)
[2023-12-12] MEDS: QUETIAPINE FUMARATE 25MG TABLET PO SCH (17:50)
[2023-12-13] VITALS (22 sets, daily range): BP systolic 132–176; BP diastolic 79–106; PULSE 67–91; RESP 8–23; TEMP 36.3918–37.28076; O2SAT 98–100
[2023-12-13 05:32] LABS: BASOPHILS % 0.7 % (0.0-2.0); EOSINOPHILS % 4.1 % (0.0-5.0); HEMATOCRIT. 27.6 % (42.0-52.0); HEMOGLOBIN. 7.9 g/dL (14.0-18.0); LYMPHOCYTES % 24.8 % (20.0-50.0); MEAN CORPUSCULAR HEMOGLOBIN 20.3 pg (28.0-32.0); MEAN CORPUSCULAR HGB CONC 28.5 g/dL (31.0-37.0); MEAN CORPUSCULAR VOLUME 71.3 fL (80.0-94.0); MONOCYTES % 9.8 % (2.0-8.0); NEUTROPHILS % 60.6 % (40.0-76.0); PLATELET 278 x1000/uL (130-400); RED BLOOD CELL COUNT 3.88 mill/uL (4.7-6.1); RED CELL DISTRIBUTION WIDTH 25.5 % (11.6-14.6); WHITE BLOOD COUNT 5.4 x1000/uL (4.5-11.0)
[2023-12-13 05:33] LABS: CALCIUM 8.9 mg/dL (8.7-10.4); CARBON DIOXIDE 22 mEq/L (21-32); CHLORIDE 110 mEq/L (98-107); SODIUM 141 mEq/L (136-145)
[2023-12-13 05:39] LABS: CREATININE 1.1 mg/dL (0.6-1.3); GLUCOSE 79 mg/dL (70-105); UREA NITROGEN BLOOD 9 mg/dL (9-23)
[2023-12-13 06:18] LABS: DIFFERENTIAL COMMENT 1
[2023-12-13] MEDS: BACITRACIN 14GM TUBE TOP SCH (20:43)
[2023-12-14] VITALS (24 sets, daily range): BP systolic 107–157; BP diastolic 79–117; PULSE 72–97; RESP 18–25; TEMP 36.33624–36.89184; O2SAT 97–100
[2023-12-14 06:02] LABS: BASOPHILS % 1.2 % (0.0-2.0); EOSINOPHILS % 3.4 % (0.0-5.0); HEMATOCRIT. 28.9 % (42.0-52.0); HEMOGLOBIN. 8.5 g/dL (14.0-18.0); LYMPHOCYTES % 28.3 % (20.0-50.0); MEAN CORPUSCULAR HEMOGLOBIN 20.7 pg (28.0-32.0); MEAN CORPUSCULAR HGB CONC 29.4 g/dL (31.0-37.0); MEAN CORPUSCULAR VOLUME 70.2 fL (80.0-94.0); MEAN PLATELET VOLUME 10.1 fl (7.4-10.4); MONOCYTES % 9.7 % (2.0-8.0); NEUTROPHILS % 57.4 % (40.0-76.0); PLATELET 285 x1000/uL (130-400); RED BLOOD CELL COUNT 4.12 mill/uL (4.7-6.1); RED CELL DISTRIBUTION WIDTH 25.8 % (11.6-14.6); WHITE BLOOD COUNT 5.3 x1000/uL (4.5-11.0)
[2023-12-14 06:13] LABS: CHLORIDE 109 mEq/L (98-107); POTASSIUM 3.5 mEq/L (3.5-5.1)
[2023-12-14 06:14] LABS: CALCIUM 8.9 mg/dL (8.7-10.4); CARBON DIOXIDE 20 mEq/L (21-32); SODIUM 140 mEq/L (136-145)
[2023-12-14 06:19] LABS: CREATININE 1.2 mg/dL (0.6-1.3); GLUCOSE 91 mg/dL (70-105)
[2023-12-14 06:20] LABS: UREA NITROGEN BLOOD 8 mg/dL (9-23)
[2023-12-14 06:22] LABS: DIFFERENTIAL COMMENT 1
[2023-12-14] MEDS: MENTHOL/LANOLIN/CALAMINE/ZN OX OINT 71GM TOP PRN (09:37)
[2023-12-14] MEDS: BUDESONIDE 0.5MG/2ML NEB HHN SCH (21:09)
[2023-12-14] MEDS: IPRATROPIUM/ALBUTEROL 0.5-3(2.5)MG/3ML NEB HHN SCH (21:09)
[2023-12-15] VITALS (23 sets, daily range): BP systolic 105–140; BP diastolic 69–89; PULSE 76–98; RESP 14–24; TEMP 36.3918–36.78072; O2SAT 92–100
[2023-12-15 07:42] LABS: BASOPHILS % 0.9 % (0.0-2.0); EOSINOPHILS % 4.2 % (0.0-5.0); HEMATOCRIT. 29.9 % (42.0-52.0); HEMOGLOBIN. 8.5 g/dL (14.0-18.0); LYMPHOCYTES % 25.2 % (20.0-50.0); MEAN CORPUSCULAR HEMOGLOBIN 19.9 pg (28.0-32.0); MEAN CORPUSCULAR HGB CONC 28.3 g/dL (31.0-37.0); MEAN CORPUSCULAR VOLUME 70.2 fL (80.0-94.0); MEAN PLATELET VOLUME 9.4 fl (7.4-10.4); MONOCYTES % 9.2 % (2.0-8.0); NEUTROPHILS % 60.5 % (40.0-76.0); PLATELET 255 x1000/uL (130-400); RED BLOOD CELL COUNT 4.25 mill/uL (4.7-6.1); RED CELL DISTRIBUTION WIDTH 25.5 % (11.6-14.6); WHITE BLOOD COUNT 4.6 x1000/uL (4.5-11.0)
[2023-12-15 07:48] LABS: CARBON DIOXIDE 22 mEq/L (21-32); CHLORIDE 109 mEq/L (98-107); POTASSIUM 3.7 mEq/L (3.5-5.1); SODIUM 140 mEq/L (136-145)
[2023-12-15 07:49] LABS: CALCIUM 9.1 mg/dL (8.7-10.4)
[2023-12-15 07:53] LABS: CREATININE 1.1 mg/dL (0.6-1.3)
[2023-12-15 07:54] LABS: GLUCOSE 98 mg/dL (70-105); UREA NITROGEN BLOOD 6 mg/dL (9-23)
[2023-12-15 08:03] LABS: DIFFERENTIAL COMMENT 1
[2023-12-15 08:04] LABS: ADD RBC MORPHOLOGY NO
[2023-12-15 09:23] LABS: BG BASE EXCESS -2.9 mmol/L (-2.0-2.0); BG CARBOXYHEMOGLOBIN 0.3 % (0.5-1.5); BG DEOXYHEMOGLOBIN 1.6 % (0.0-5.0); BG FRACTION INSPIRED OXYGEN 40; BG HCO3 ACT 20.8 mmol/L (22.0-26.0); BG METHEMOGLOBIN 0.3 % (0.0-1.5); BG OXYGEN SATURATION 98.4 % (92.0-98.5); BG OXYHEMOGLOBIN 97.8 % (94.0-97.0); BG PCO2 32.5 mmHg (35.0-45.0); BG PH 7.425 (7.350-7.450); BG SAMPLE SITE RIGHT RADIAL; BG TOTAL HEMOGLOBIN 9.9 g/dL (12.0-18.0); BG VENT MODE VENT - P/C
== END 2023-12-15 19:30 | DRG 5 ==
LOC: ER 23:43 → EDBD 11-29 01:16 → MICUNO 11-29 01:16 → EDBEDREQ 11-29 01:36 → EDBEDREQTM 11-29 01:36 → 5EST 12-06 23:57
PROVIDERS: ADMIT Internal Medicine; ATTEND Internal Medicine
PROC: 0BH17EZ Insertion of Endotracheal Airway into Trachea, Via Natural or Artificial Opening (ICD-10-PCS; 2023-11-28)
PROC: 5A1955Z Respiratory Ventilation, Greater than 96 Consecutive Hours (ICD-10-PCS; 2023-11-28)
PROC: 05HY33Z Insertion of Infusion Device into Upper Vein, Percutaneous Approach (ICD-10-PCS; 2023-11-30)
PROC: B54MZZA Ultrasonography of Right Upper Extremity Veins, Guidance (ICD-10-PCS; 2023-11-30)
PROC: 02HV33Z Insertion of Infusion Device into Superior Vena Cava, Percutaneous Approach (ICD-10-PCS; 2023-12-02)
PROC: B548ZZA Ultrasonography of Superior Vena Cava, Guidance (ICD-10-PCS; 2023-12-02)
PROC: 5A1D70Z Performance of Urinary Filtration, Intermittent, Less than 6 Hours Per Day (ICD-10-PCS; 2023-12-03)
PROC: 0B110F4 Bypass Trachea to Cutaneous with Tracheostomy Device, Open Approach (ICD-10-PCS; 2023-12-05)
PROC: 5A1935Z Respiratory Ventilation, Less than 24 Consecutive Hours (ICD-10-PCS; 2023-12-05)
PROC: 5A1955Z Respiratory Ventilation, Greater than 96 Consecutive Hours (ICD-10-PCS; 2023-12-06)
PROC: 0DH68UZ Insertion of Feeding Device into Stomach, Via Natural or Artificial Opening Endoscopic (ICD-10-PCS; 2023-12-06)
PROC: 4A00X4Z Measurement of Central Nervous Electrical Activity, External Approach (ICD-10-PCS; principal; 2023-12-08)
DX: A41.9 Sepsis, unspecified organism (principal); I46.9 Cardiac arrest, cause unspecified; K72.00 Acute and subacute hepatic failure without coma; J69.0 Pneumonitis due to inhalation of food and vomit; J96.21 Acute and chronic respiratory failure with hypoxia; I21.4 Non-ST elevation (NSTEMI) myocardial infarction; G92.8 Other toxic encephalopathy; E46 Unspecified protein-calorie malnutrition; E83.39 Other disorders of phosphorus metabolism; I42.9 Cardiomyopathy, unspecified; E87.29 Other acidosis; N17.9 Acute kidney failure, unspecified; A59.8 Trichomoniasis of other sites; J96.22 Acute and chronic respiratory failure with hypercapnia; D50.9 Iron deficiency anemia, unspecified; J44.0 Chronic obstructive pulmonary disease with (acute) lower respiratory infection; J44.1 Chronic obstructive pulmonary disease with (acute) exacerbation; E11.649 Type 2 diabetes mellitus with hypoglycemia without coma; G93.1 Anoxic brain damage, not elsewhere classified; N39.0 Urinary tract infection, site not specified; E83.41 Hypermagnesemia; E66.01 Morbid (severe) obesity due to excess calories; F17.210 Nicotine dependence, cigarettes, uncomplicated; H05.20 Unspecified exophthalmos; E87.6 Hypokalemia; K74.60 Unspecified cirrhosis of liver; K29.70 Gastritis, unspecified, without bleeding; I11.0 Hypertensive heart disease with heart failure; R13.12 Dysphagia, oropharyngeal phase; R57.9 Shock, unspecified; Z99.11 Dependence on respirator [ventilator] status; Z68.42 Body mass index [BMI] 45.0-49.9, adult; K94.23 Gastrostomy malfunction
CPT/HCPCS: 36415; 36556; 36573; 36600; 71045; 74018; 76700; 76705; 76770; 76937; 80048; 80061; 80076; 80305; 80320; 81003; 82140; 82270; 82375; 82550; 82570; 82607; 82728; 82746; 82805; 82962; 83036; 83540; 83550; 83605; 83735; 83880; 84100; 84132; 84156; 84439; 84443; 84480; 84484; 85025; 85027; 85044; 85379; 86038; 86160; 86705; 86709; 86850; 86900; 87070; 87077; 87106; 87186; 87340; 90935; 93005; 93306; 93970; 94003; 94640; 95816; 99291; A6261; C1725; C1752; C1769; J0360; J0456; J0696; J1100; J1630; J1650; J1815; J1940; J2060; J2250; J2470; J2543; J2704; J2919; J3010; J3475; J3480; J3490; J7030; J7040; J7050; J7070; J7608; J7626; L8514; Q9963; A5200; G0480